=== PATIENT | female | born 1965 | race Caucasian/White ===

== ENCOUNTER → 2018-08-08 12:20 | Outpatient (CLI) | payer OTHER, SELFPAY ==
--- NOTE | 2018-08-08 | DI.RAD.S_ITS ---
PROCEDURE: XR ABDOMEN 1V INDICATIONS: BOWEL OBSTUCTION TECHNIQUE: One view of the abdomen acquired. COMPARISON: [facility], CT, KUB - CT (PN), 11/18/2014, 9:14. FINDINGS: Surgical changes and devices: None. Bowel: Bowel gas pattern is nonspecific. There are minimal appearance of scattered small bowel fluid levels. Soft tissues: No suspicious abdominal calcifications. Visualized solid organ contours appear normal in size. Bones: No suspicious bony lesions. IMPRESSION: Minimal scattered small bowel fluid levels suggestive of ileus. Developing partial small bowel obstruction cannot be excluded. Dictated by: Sasha Martin M.D. on 08/08/2018 at 14:04 Approved by: Sasha Martin M.D. on 08/08/2018 at 14:06
== END ==
PROVIDERS: PCP Family Medicine; Visit Provider Family Medicine
DX: K56.609 Unspecified intestinal obstruction, unspecified as to partial versus complete obstruction (principal)
CPT/HCPCS: 74018